=== PATIENT | female | born 1965 ===

== ENCOUNTER 2019-08-12 05:00 | Day surgery (SDC) | payer OTHER ==
[~2019-08-12 05:00] MED LIST: FOLIC PO; PEPCI PO; SYNTHROID125 MCG PO
[2019-08-12] MEDS ORDERED: PERCOCET 5-3251 EACH PO (08:34)
[2019-08-12] MEDS ORDERED: COLACE100 MG PO (08:34)
== END 2019-08-12 14:45 | disposition home or self-care (01) ==
LOC: CIR.AMB 05:00 → ADM 13:00 → CIR.AMB 13:00
DX: D01.3 Carcinoma in situ of anus and anal canal (principal); K62.0 Anal polyp